=== PATIENT | female | born 1990 | race Hispanic/Latino ===

== ENCOUNTER 2019-05-16 13:11 | Emergency (ER) | payer OTHER ==
[2019-05-16 14:15] LABS: RAPID GROUP A STREP POSITIVE (NEGATIVE)
[2019-05-16] MEDS ORDERED: DEXAMETHASONE SOD PHOSPHATE 10MG/ML 1ML VIAL ONE (15:01)
[2019-05-16] MEDS ORDERED: IBUPROFEN 600 MG TABLET ONE (15:01)
== END 2019-05-16 15:19 | disposition home or self-care (01) ==
LOC: EDH 13:11
DX: J02.0 Streptococcal pharyngitis (principal); R05 Cough; Z90.49 Acquired absence of other specified parts of digestive tract
CPT/HCPCS: 87804 ×2; 87880; 96372; 99284; J1100